=== PATIENT | male | born 1935 | race Caucasian/White ===

== ENCOUNTER 2016-09-14 11:49 | Inpatient (IN) | payer OTHER ==
[~2016-09-14] VITALS: Ht 170.2 cm; Wt 84.1 kg
[~2016-09-14 11:49] MED LIST: ADULT LOW DOSE81 M1 PO; ADVIL200 MG PO; AMBIEN5 M1 PO; ASPIRIN81 M1 PO; ATIVAN0.5 M1 PO; BENICAR20 MG PO; CYANOCOBALAM1000 MCG PO; ELIQUIS5 MG PO; LEXAPRO10 MG PO; LEXAPRO5 MG PO; LIPITOR20 MG PO; METOPROLOL SUCC25 MG PO; OXYCODONE HCL5 MG PO; OXYCONTIN10 MG PO; PLAVIX75 MG PO; PROSTATE HEALT1 EAC1 PO; SALMON OIL 1,01 EACH PO; SAW PALMETTO450 MG PO; ST. JOSEPH ASPI81 MG PO; TOPROL XL25 MG PO
[2016-09-14 13:10] LABS: EOSINOPHIL (%) 0.9 % (0-5); EOSINOPHIL COUNT 0.1 K/uL (0-0.3); HEMATOCRIT 42.6 % (38.0-50.0); IMMATURE GRANULOCYTE (%) 0.2 % (0.0-0.7); INSTRUMENT ABS NEUTROPHIL CT 6.4 K/uL; LYMPHOCYTE COUNT 1.1 K/uL (1.0-2.8); MCH 29.9 PG (29.0-34.0); MCHC 32.6 G/DL (30.0-36.0); MCV 91.6 FL (86-99); MEAN PLAT.VOLUME 12.5 uM^3 (9.0-12.4); MONOCYTE (%) 9.3 % (3-12); MONOCYTE COUNT 0.8 K/uL (0-0.8); NEUTROPHIL (%) 75.8 % (45-76); NEUTROPHIL COUNT 6.4 K/uL (1.8-6.4); PLATELET COUNT 158 K/uL (156-360); RBC DIS.WIDTH-CV 13.3 % (11.8-14.6); RED BLOOD COUNT 4.65 M/uL (4.00-5.50); WHITE BLOOD COUNT 8.5 K/uL (4.1-10.2)
[2016-09-14 13:15] LABS: INTER. NORMALIZED RATIO 1.3; PROTHROMBIN TIME 12.8 (9.2-11.2); PTT 29.9 (25-32)
[2016-09-14 13:19] LABS: CHLORIDE 112 mEq/L (99-109); POTASSIUM 4.4 mEq/L (3.7-5.4); SODIUM 140 mEq/L (136-147)
[2016-09-14 13:20] LABS: GLUCOSE 138 mg/dL (70-99)
[2016-09-14 13:22] LABS: ANION GAP 12 MEQ/L (2-14)
[2016-09-14 13:24] LABS: GFR ESTIMATE (CALCULATED) 48 mL/min/
[2016-09-14 13:25] LABS: UREA NITROGEN (BUN) 38 mg/dL (9-23)
[2016-09-14 13:30] LABS: TROP-I INTERPRETATION NEGATIVE; TROPONIN-I < 0.01 ng/mL (0.0-0.30)
[2016-09-14] MEDS ORDERED: LEXAPRO10 MG PO (15:12)
[2016-09-14] MEDS ORDERED: LIPITOR10 MG PO (15:12)
[2016-09-14] MEDS ORDERED: BENICAR5 MG PO (15:12)
[2016-09-14] MEDS ORDERED: BYSTOLIC10 MG PO (15:13)
[2016-09-14 20:45] VITALS: BP 109/70
[2016-09-14 23:20] VITALS: BP 100/77
[2016-09-15 05:00] VITALS: BP 100/71
[2016-09-15 07:53] VITALS: BP 106/75
[2016-09-15 12:03] VITALS: BP 99/68
[2016-09-15 17:00] VITALS: BP 112/81
[2016-09-15 19:20] VITALS: BP 114/83
[2016-09-16 00:10] VITALS: BP 116/70
[2016-09-16 04:30] VITALS: BP 123/81
[2016-09-16 07:17] VITALS: BP 112/97
[2016-09-16 12:10] VITALS: BP 109/76
[2016-09-16 17:36] VITALS: BP 114/72
[2016-09-16 19:30] VITALS: BP 116/81
[2016-09-17 00:09] VITALS: BP 123/71
[2016-09-17 03:48] VITALS: BP 120/95
[2016-09-17 07:35] VITALS: BP 117/80
[2016-09-17 10:19] LABS: ANION GAP 15 MEQ/L (2-14); CHLORIDE 104 MEQ/L (99-109); GFR ESTIMATE (CALCULATED) 52 mL/min/; POTASSIUM 4.2 MEQ/L (3.7-5.4); SAMPLE HEMOLYSIS CHECK 0; SAMPLE ICTERIC CHECK 0; SAMPLE LIPEMIA CHECK 0; SODIUM 135 MEQ/L (136-147); UREA NITROGEN (BUN) 33 mg/dL (9-23)
[2016-09-17 10:21] LABS: GLUCOSE 285 mg/dL (70-99)
[2016-09-17 13:54] VITALS: BP 127/95
[2016-09-17 17:13] VITALS: BP 129/83
[2016-09-17 20:00] VITALS: BP 137/84
[2016-09-18] VITALS (7 sets, daily range): BP systolic 113–158; BP diastolic 66–98
[2016-09-18 07:40] LABS: INFLUENZA A VIRAL ANTIGEN NEGATIVE; INFLUENZA B VIRAL ANTIGEN NEGATIVE
[2016-09-19 04:14] VITALS: BP 131/89
[2016-09-19 06:36] LABS: EOSINOPHIL (%) 0 % (0-5); HEMATOCRIT 37.4 % (38.0-50.0); IMMATURE GRANULOCYTE COUNT 0.2 K/uL; INSTRUMENT ABS NEUTROPHIL CT 13.1 K/uL; LYMPHOCYTE COUNT 0.6 K/uL (1.0-2.8); MCHC 33.2 G/DL (30.0-36.0); MCV 90.3 FL (86-99); MEAN PLAT.VOLUME 11.6 uM^3 (9.0-12.4); MONOCYTE (%) 3.6 % (3-12); MONOCYTE COUNT 0.5 K/uL (0-0.8); NEUTROPHIL (%) 91.1 % (45-76); NEUTROPHIL COUNT 13.1 K/uL (1.8-6.4); PLATELET COUNT 174 K/uL (156-360); RBC DIS.WIDTH-CV 13.8 % (11.8-14.6); RBC DIS.WIDTH-SD 46.2 % (39-53); RED BLOOD COUNT 4.14 M/uL (4.00-5.50)
[2016-09-19 06:43] LABS: WHITE BLOOD COUNT 14.4 K/uL (4.1-10.2)
[2016-09-19 06:57] LABS: ANION GAP 11 MEQ/L (2-14); CHLORIDE 105 MEQ/L (99-109); GFR ESTIMATE (CALCULATED) > 59 mL/min/; GLUCOSE 201 mg/dL (70-99); POTASSIUM 4.6 MEQ/L (3.7-5.4); SAMPLE HEMOLYSIS CHECK 0; SAMPLE ICTERIC CHECK 0; SAMPLE LIPEMIA CHECK 0; SODIUM 135 MEQ/L (136-147); UREA NITROGEN (BUN) 41 mg/dL (9-23)
[2016-09-19 07:22] VITALS: BP 139/91
[2016-09-19 11:48] VITALS: BP 158/99
[2016-09-19 16:26] VITALS: BP 147/99
[2016-09-19 19:35] VITALS: BP 132/89
[2016-09-19 23:38] VITALS: BP 130/60
[2016-09-20 03:54] VITALS: BP 115/80
[2016-09-20 07:21] LABS: ANION GAP 12 MEQ/L (2-14); CHLORIDE 103 MEQ/L (99-109); GFR ESTIMATE (CALCULATED) > 59 mL/min/; GLUCOSE 206 mg/dL (70-99); SAMPLE HEMOLYSIS CHECK 0; SAMPLE ICTERIC CHECK 0; SAMPLE LIPEMIA CHECK 0; SODIUM 134 MEQ/L (136-147); UREA NITROGEN (BUN) 40 mg/dL (9-23)
[2016-09-20 08:07] LABS: DIGOXIN 0.8 ng/mL (0.8-2.0)
[2016-09-20 08:27] VITALS: BP 131/96
[2016-09-20 12:02] VITALS: BP 136/93
[2016-09-20 16:07] VITALS: BP 155/89
[2016-09-20 20:02] VITALS: BP 155/95
[2016-09-20 22:31] VITALS: BP 134/90
[2016-09-21 03:53] VITALS: BP 123/75
[2016-09-21 06:47] LABS: ANION GAP 9 MEQ/L (2-14); CHLORIDE 103 MEQ/L (99-109); GFR ESTIMATE (CALCULATED) > 59 mL/min/; GLUCOSE 158 mg/dL (70-99); POTASSIUM 4.6 MEQ/L (3.7-5.4); SAMPLE HEMOLYSIS CHECK 0; SAMPLE ICTERIC CHECK 0; SAMPLE LIPEMIA CHECK 0; SODIUM 134 MEQ/L (136-147); UREA NITROGEN (BUN) 36 mg/dL (9-23)
[2016-09-21 09:06] VITALS: BP 132/86
[2016-09-21 12:01] VITALS: BP 137/69
[2016-09-21 19:40] VITALS: BP 156/100
[2016-09-21 23:15] VITALS: BP 148/101
[2016-09-22 03:45] VITALS: BP 136/86
[2016-09-22 06:01] LABS: EOSINOPHIL (%) 0.1 % (0-5); HEMATOCRIT 39.3 % (38.0-50.0); IMMATURE GRANULOCYTE (%) 2.1 % (0.0-0.7); IMMATURE GRANULOCYTE COUNT 0.3 K/uL; INSTRUMENT ABS NEUTROPHIL CT 9.2 K/uL; LYMPHOCYTE COUNT 1.1 K/uL (1.0-2.8); MCH 29.5 PG (29.0-34.0); MCHC 32.8 G/DL (30.0-36.0); MCV 89.7 FL (86-99); MEAN PLAT.VOLUME 11.6 uM^3 (9.0-12.4); MONOCYTE (%) 10.8 % (3-12); MONOCYTE COUNT 1.3 K/uL (0-0.8); NEUTROPHIL (%) 77.5 % (45-76); NEUTROPHIL COUNT 9.2 K/uL (1.8-6.4); PLATELET COUNT 160 K/uL (156-360); RBC DIS.WIDTH-CV 13.2 % (11.8-14.6); RBC DIS.WIDTH-SD 43.3 % (39-53); RED BLOOD COUNT 4.38 M/uL (4.00-5.50); WHITE BLOOD COUNT 11.9 K/uL (4.1-10.2)
[2016-09-22 06:30] LABS: ANION GAP 7 MEQ/L (2-14); CHLORIDE 99 MEQ/L (99-109); GFR ESTIMATE (CALCULATED) > 59 mL/min/; GLUCOSE 135 mg/dL (70-99); POTASSIUM 4.6 MEQ/L (3.7-5.4); SAMPLE HEMOLYSIS CHECK 0; SAMPLE ICTERIC CHECK 0; SAMPLE LIPEMIA CHECK 0; SODIUM 131 MEQ/L (136-147); UREA NITROGEN (BUN) 32 mg/dL (9-23)
[2016-09-22 08:03] VITALS: BP 138/78
[2016-09-22 11:47] VITALS: BP 127/82
[2016-09-22 16:32] VITALS: BP 127/88
[2016-09-22 19:55] VITALS: BP 132/84
[2016-09-23 00:53] VITALS: BP 129/87
[2016-09-23 05:02] VITALS: BP 144/90
[2016-09-23 06:23] LABS: BASOPHIL COUNT 0.1 K/uL (0-0.1); EOSINOPHIL (%) 0.8 % (0-5); EOSINOPHIL COUNT 0.1 K/uL (0-0.3); HEMATOCRIT 39.3 % (38.0-50.0); IMMATURE GRANULOCYTE (%) 2.2 % (0.0-0.7); IMMATURE GRANULOCYTE COUNT 0.3 K/uL; INSTRUMENT ABS NEUTROPHIL CT 8.4 K/uL; LYMPHOCYTE COUNT 1.5 K/uL (1.0-2.8); MCHC 33.8 G/DL (30.0-36.0); MCV 88.7 FL (86-99); MEAN PLAT.VOLUME 11.1 uM^3 (9.0-12.4); MONOCYTE (%) 10.5 % (3-12); MONOCYTE COUNT 1.2 K/uL (0-0.8); NEUTROPHIL (%) 72.7 % (45-76); NEUTROPHIL COUNT 8.4 K/uL (1.8-6.4); PLATELET COUNT 170 K/uL (156-360); RBC DIS.WIDTH-CV 12.9 % (11.8-14.6); RBC DIS.WIDTH-SD 42.5 % (39-53); RED BLOOD COUNT 4.43 M/uL (4.00-5.50); WHITE BLOOD COUNT 11.5 K/uL (4.1-10.2)
[2016-09-23 06:46] LABS: ANION GAP 8 MEQ/L (2-14); CHLORIDE 102 MEQ/L (99-109); GFR ESTIMATE (CALCULATED) > 59 mL/min/; GLUCOSE 98 mg/dL (70-99); POTASSIUM 4.3 MEQ/L (3.7-5.4); SAMPLE HEMOLYSIS CHECK 0; SAMPLE ICTERIC CHECK 0; SAMPLE LIPEMIA CHECK 0; SODIUM 136 MEQ/L (136-147); UREA NITROGEN (BUN) 30 mg/dL (9-23)
[2016-09-23 07:21] VITALS: BP 140/88
[2016-09-23 11:36] VITALS: BP 148/92
[2016-09-23 14:55] VITALS: BP 134/79
[2016-09-23 20:45] VITALS: BP 124/72
[2016-09-24 00:38] VITALS: BP 122/80
[2016-09-24 05:30] VITALS: BP 132/98
[2016-09-24 06:49] VITALS: BP 138/86
[2016-09-24 10:59] VITALS: BP 137/92
[2016-09-24 15:03] VITALS: BP 141/72
[2016-09-24 21:15] VITALS: BP 122/77
[2016-09-25 00:47] VITALS: BP 123/83
[2016-09-25 05:04] VITALS: BP 126/58
[2016-09-25 06:40] LABS: ANION GAP 8 MEQ/L (2-14); CHLORIDE 102 MEQ/L (99-109); GFR ESTIMATE (CALCULATED) > 59 mL/min/; GLUCOSE 108 mg/dL (70-99); POTASSIUM 4.4 MEQ/L (3.7-5.4); SAMPLE HEMOLYSIS CHECK 0; SAMPLE ICTERIC CHECK 0; SAMPLE LIPEMIA CHECK 0; SODIUM 137 MEQ/L (136-147); UREA NITROGEN (BUN) 32 mg/dL (9-23)
[2016-09-25 07:45] VITALS: BP 134/89
[2016-09-25 08:16] LABS: DIGOXIN 0.6 ng/mL (0.8-2.0)
[2016-09-25] MEDS ORDERED: DIGOXIN250 MCG PO (13:41)
[2016-09-25] MEDS ORDERED: CARDIZEM CD,CA240 MG PO (13:41)
[2016-09-25] MEDS ORDERED: MUCINEX600 MG PO (13:43)
[2016-09-25] MEDS ORDERED: ADVAIR HFA120 INHALA IH (13:43)
[2016-09-25] MEDS ORDERED: PREDNISONE20 MG PO (13:43)
[2016-09-25] MEDS ORDERED: CEFTIN500 MG PO (13:44)
[2016-09-25] MEDS ORDERED: ALPRAZOLAM0.25 M2 PO (13:44)
== END 2016-09-25 15:25 | disposition home or self-care (01) | DRG 194 ==
LOC: EME 11:49 → EDOF 16:18 → 4EAST 16:18
PROVIDERS: Emergency Medicine; Family Medicine; Internal Medicine; Physician Assistant Medical
DX: J18.9 Pneumonia, unspecified organism (principal); I48.0 Paroxysmal atrial fibrillation; J44.1 Chronic obstructive pulmonary disease with (acute) exacerbation; J90 Pleural effusion, not elsewhere classified; J84.10 Pulmonary fibrosis, unspecified; I10 Essential (primary) hypertension; I25.10 Atherosclerotic heart disease of native coronary artery without angina pectoris; F41.9 Anxiety disorder, unspecified; E78.5 Hyperlipidemia, unspecified; R94.31 Abnormal electrocardiogram [ECG] [EKG]; M19.90 Unspecified osteoarthritis, unspecified site; F32.9 Major depressive disorder, single episode, unspecified; Z95.5 Presence of coronary angioplasty implant and graft; Z79.01 Long term (current) use of anticoagulants
CPT/HCPCS: 71010; 71020; 78582; 80048; 80162; 83605; 83880; 84484; 85025; 85610; 85730; 87040; 87502; 93005; 94640; 94640 76; 94760; 94799; 99202; 99281; 99285; A9540; A9567; J0456; J0692; J0696; J1160; J2930; J7050; J7512